=== PATIENT | female | born 1990 | race Caucasian/White ===

== ENCOUNTER 2018-07-15 13:45 | Inpatient (IN) | payer OTHER ==
[~2018-07-15] VITALS: Ht 154.9 cm; Wt 3.2 kg
[2018-07-21] MEDS ORDERED: PRENATAL TABLE1 EACH PO (09:24)
[2018-07-24] MEDS ORDERED: Tylenol #3 PO (10:58)
== END 2018-07-24 11:13 | DRG 785 ==
LOC: O/R 07-21 08:54 → OB/GYN 07-21 08:54
PROVIDERS: ADMIT Obstetrics & Gynecology
PROC: 0UL70ZZ Occlusion of Bilateral Fallopian Tubes, Open Approach (ICD-10-PCS; 2018-07-21)
PROC: 4A0HXFZ Measurement of Products of Conception, Cardiac Rhythm, External Approach (ICD-10-PCS; 2018-07-21)
PROC: 10D00Z1 Extraction of Products of Conception, Low, Open Approach (ICD-10-PCS; principal; 2018-07-21 11:15)
DX: O82 Encounter for cesarean delivery without indication (principal); Z3A.39 39 weeks gestation of pregnancy; Z37.0 Single live birth; Z30.2 Encounter for sterilization